=== PATIENT | male | born 1970 | race Two or more races ===

== ENCOUNTER 2017-06-27 00:38 | Emergency (ER) | payer SELFPAY ==
[2017-06-27 00:46] VITALS: BP 134/82; PULSE 78; RESP 20; TEMP 98; O2SAT 98
== END 2017-06-27 01:22 | disposition left against medical advice (07) ==
LOC: C.ER 00:38
DX: Z02.89 Encounter for other administrative examinations (principal); S09.90XA Unspecified injury of head, initial encounter; Y09 Assault by unspecified means